=== PATIENT | male | born 1990 | race African-American/Black ===

== ENCOUNTER 2017-09-05 10:48 | Inpatient (IN) | payer SELFPAY ==
[2017-09-05] VITALS (8 sets, daily range): BP systolic 127–158; BP diastolic 44–94
[~2017-09-05] VITALS: Ht 172.7 cm; Wt 76.7 kg
--- NOTE | 2017-09-05 11:05 | NUR ---
PATIENT PRESENTS TO ED WITH umbilical region pain, nausea, loose stool x this am . PT STATES . DENIES N/V/D; SKIN IS PINK/WARM/DRY; AAOX4 WITH EVEN AND STEADY GAIT; LUNGS CLEAR BL; HR EVEN AND REGULAR; PT DENIES ANY FEVER, CP, SOB, OR COUGH AT THIS TIME; PATIENT STATES PAIN OF 7/10 AT THIS TIME; VSS; PATIENT POSITIONED FOR COMFORT; HOB ELEVATED; BEDRAILS UP X2; BED DOWN. ER MD MADE AWARE OF PT STATUS.
[2017-09-05] MEDS ORDERED: KETOROLAC 30 MG/ML VIAL IVP ONE (11:15)
--- NOTE | 2017-09-05 11:24 | NUR ---
blood collected at iv start--lab called for pick up and delivery driver
[2017-09-05 11:45] LABS: BASOPHILS # (AUTO) 0.1 K/uL (0.00-0.22); BASOPHILS % (AUTO) 1.3 % (0.0-2.0); EOSINOPHILS # (AUTO) 0.1 K/uL (0-0.4); HEMATOCRIT 45.2 % (36-52); HEMOGLOBIN 15.3 g/dL (12.0-18.0); LYMPHOCYTES # (AUTO) 0.6 K/uL (2.0-11.5); LYMPHOCYTES % (AUTO) 5.7 % (20.5-51.1); MEAN CORPUSCULAR HEMOGLOBIN 29 pg (27-31); MEAN CORPUSCULAR HGB CONC 34 g/dL (33-37); MEAN CORPUSCULAR VOLUME 85 fL (80-94); MONOCYTES # (AUTO) 0.5 K/uL (0.8-1.0); MONOCYTES % (AUTO) 4.7 % (1.7-9.3); NEUTROPHILS # (AUTO) 8.5 K/uL (1.8-7.7); NEUTROPHILS % (AUTO) 87.3 % (42.2-75.2); PLATELET COUNT (AUTO) 159 K/uL (140-450); RED BLOOD CELL COUNT(AUTO) 5.32 MIL/uL (4.20-6.10); RED CELL DISTRIBUTION WIDTH 12.6 % (11.6-13.7); WHITE BLOOD COUNT (AUTO) 9.8 K/uL (4.8-10.8)
[2017-09-05 12:06] LABS: CARBON DIOXIDE 25.5 mmol/L (21-32); POTASSIUM 3.5 mmol/L (3.5-5.1)
[2017-09-05 12:11] LABS: ALBUMIN 4.3 g/dL (3.4-5.0); TOTAL BILIRUBIN 0.4 mg/dL (0.0-1.0)
--- NOTE | 2017-09-05 12:14 | NUR ---
dispo is admission, awaits room availability for acute appy
[2017-09-05] MEDS ORDERED: PIPERACILLIN/TAZOBACTAM 3.375 GM VIAL IV ONE (12:18)
[2017-09-05] MEDS ORDERED: PIPERACILLIN/TAZOBACTAM 3.375 GM in DEXTROSE 5% 50 ML IV ONE (12:20)
[2017-09-05] MEDS: NACL 0.9% 1,000 ML IV SCH ×2 (12:24→22:24)
[2017-09-05] MEDS ORDERED: DOCUSATE SODIUM 100 MG GELCAP PO PRN (12:25)
[2017-09-05] MEDS ORDERED: ONDANSETRON 4 MG/2 ML VIAL IVP PRN ×2 (12:25→15:20)
[2017-09-05] MEDS ORDERED: ACETAMINOPHEN 325 MG TAB PO PRN (12:25)
[2017-09-05] MEDS ORDERED: HYDROcodone/APAP 7.5/325 MG 1 TAB PO PRN (12:25)
--- NOTE | 2017-09-05 12:50 | NUR ---
PATIENT WAS TRANSFERRED FROM ER IN [facility]. REPORT WAS GIVEN AT BEDSIDE. PATIENT IS AWAKE, ALERT, AMBULATE SELF TO BED, STEADY GAIT. VS WAS TAKEN. MRSA WAS SWABBED. IVF WAS HUNG. PATIENT WAS ORIENTED WITH ROOM, STAFF, AND CALL LIGHT. PATIENT COMPLAINED OF ABDOMINAL PAIN 2/10, STATED HE DID NOT NEED MEDICATION RIGHT NOW. PLAN OF CARE WAS DISCUSSED WITH PATIENT. BED AT LOW POSITION, UPPER SIDE RAILS UP
--- NOTE | 2017-09-05 12:54 | NUR ---
Pt transferred to Med/Surg via [facility] report given to Al BROUSSARD ---room 111-a
[2017-09-05 13:07] LABS: PROTHROMBIN TIME 10.5 secs (10.8-13.4)
[2017-09-05 13:24] LABS: FREE T4 (FREE THYROXINE) 1.16 ng/dL (0.76-1.46); MAGNESIUM 1.7 mg/dL (1.8-2.4); THYROID STIMULATING HORMONE 0.94 uIU/mL (0.34-3.74)
[2017-09-05] MEDS ORDERED: KETOROLAC 30 MG/ML VIAL IVP PRN (13:30)
--- NOTE | 2017-09-05 13:57 | NUR ---
PROCEDURE CONSENT WAS OBTAINED AT BEDSIDE, SIGNED BY PATIENT. PATIENT VERBALIZED UNDERSTANDING.
--- NOTE | 2017-09-05 14:30 | NUR ---
OR TRANSPORT WAS AT BEDSIDE, TRANSFERRING PATIENT TO OR. PATIENT IS STABLE AT THIS TIME
[2017-09-05] MEDS ORDERED: PHENYLEPHRINE 10 MG/ML VIAL ONE (14:32)
[2017-09-05] MEDS ORDERED: SUCCINYLCHOLINE CHLORIDE 200 MG/10 ML VIAL IVP ONE (14:32)
[2017-09-05] MEDS ORDERED: ROCURONIUM 50 MG/5 ML VIAL IV ONE (14:32)
[2017-09-05] MEDS ORDERED: DESFLURANE 240 ML BTL INH ONE (14:32)
[2017-09-05] MEDS ORDERED: LIDOCAINE 2% 100 MG/5 ML SYR IVP ONE (14:32)
[2017-09-05] MEDS ORDERED: PROPOFOL 200 MG/20 ML VIAL IV ONE (14:32)
[2017-09-05] MEDS ORDERED: DEXAMETHASONE 4 MG/ML VIAL ONE (14:32)
[2017-09-05] MEDS ORDERED: ePHEDrine 50 MG/ML VIAL ONE (14:32)
[2017-09-05] MEDS ORDERED: GLYCOPYRROLATE 0.2 MG/ML VIAL ONE (14:32)
[2017-09-05] MEDS ORDERED: ONDANSETRON 4 MG/2 ML VIAL ONE (14:32)
[2017-09-05] MEDS ORDERED: fentaNYL 0.05 MG/ML VIAL ONE (14:41)
[2017-09-05] MEDS ORDERED: MIDAZOLAM 2 MG/2 ML VIAL ONE (14:41)
[2017-09-05] MEDS ORDERED: BUPIVACAINE-MPF 0.25% 30 ML VIAL INJ ONE (14:51)
[2017-09-05] MEDS ORDERED: HYDROmorphone PFS 2 MG/ML SYR IVP PRN (15:20)
[2017-09-05] MEDS ORDERED: HYDROmorphone 1 MG/ML AMP IVP PRN (15:20)
[2017-09-05] MEDS ORDERED: HYDROmorphone PFS 2 MG/ML SYR ONE (16:30)
--- NOTE | 2017-09-05 16:52 | NUR ---
PATIENT WAS TRANSFERRED FROM OR. REPORT WAS GIVEN AT BEDSIDE. VS WAS TAKEN. PATIENT IS AWAKE, ALERT. RESPIRATION EVEN, UNLABOR ON ROOM AIR. DENIED PAIN AT THIS TIME.
--- NOTE | 2017-09-05 18:10 | NUR ---
PATIENT IS AWAKE, ALERT, EATING DINNER. PATIENT TOLERATED CLEAR LIQUID WELL, NO COMPLAINED OF PAIN, NAUSEA. RESPIRATION EVEN, UNLABOR. CALL LIGHT WITHIN REACH
--- NOTE | 2017-09-05 19:20 | NUR ---
PATIENT REPORT REPORT RECEIVED FROM MORNING NURSE AT BEDSIDE. PATIENT IS AWAKE, ALERT, AND ORIENTED. NO SIGNS AND SYMPTOMS OF DISTRESS NOTED. IV SITE NOTED ON RIGHT AC, IVF INFUSING WELL. BED IN LOWEST POSITION, SIDE RAILS UP AND CALL LIGHT WITHIN REACH. WILL CONTINUE TO MONITOR.
--- NOTE | 2017-09-05 20:00 | NUR ---
PATIENT REQUESTED HANDOUT ABOUT APPENDICITIS AND APPENTECTOMY. GAVE HIM TWO HANDOUTS AND LET HIM KNOW TO ASK IF HE HAS ANY QUESTIONS
[2017-09-05] MEDS: PIPER/TAZO 3.375GM/D5W PREMIX 50 ML IV SCH (20:11)
[2017-09-05] MEDS: HYDROcodone/APAP 5/325 MG 1 TAB TAB PO PRN (20:11)
[2017-09-05 22:39] LABS: APPEARANCE,URINE CLEAR (CLEAR); BILIRUBIN,URINE NEGATIVE (NEGATIVE); BLOOD, URINE NEGATIVE (NEGATIVE); COLOR,URINE YELLOW (YELLOW); LEUKOCYTE ESTERASE ,URINE NEGATIVE (NEGATIVE); NITRITE, URINE NEGATIVE (NEGATIVE); UGLUCOSE NEGATIVE (NEGATIVE)
[2017-09-05 22:46] LABS: BARBITURATE, URINE NEG. ng/ml (NEG <=200); BENZODIAZEPINE, URINE POS. ng/mL (NEG <=200); CANNABINOID, URINE POS. ng/mL (NEG <=50); COCAINE, URINE NEG. ng/mL (NEG <=300); OPIATE, URINE NEG. ng/mL (NEG <=2000); PHENCYCLIDINE SCREEN,URINE NEG. ng/mL (NEG <=25)
[2017-09-05 22:55] LABS: RBC,URINE 0-5 (RARE) /HPF (0-5); WBC,URINE 0-5 (RARE) /HPF (0-5)
[2017-09-06] VITALS: BP 119/62
--- NOTE | 2017-09-06 | NUR ---
CHECKED ON PATIENT. PATIENT IS ASLEEP. NO SIGNS AND SYMPTOMS OF DISTRESS NOTED. WILL CONTINUE TO MONITOR.
--- NOTE | 2017-09-06 02:00 | NUR ---
CHECKED ON PATIENT. PATIENT IS ASLEEP. NO SIGNS AND SYMPTOMS OF DISTRESS NOTED. WILL CONTINUE TO MONITOR.
[2017-09-06 04:00] VITALS: BP 121/72
[2017-09-06] MEDS: PIPER/TAZO 3.375GM/D5W PREMIX 50 ML IV SCH ×2 (04:32→12:30)
--- NOTE | 2017-09-06 04:47 | NUR ---
CHECKED ON PATIENT. PATIENT IS ASLEEP. NO SIGNS AND SYMPTOMS OF DISTRESS NOTED. WILL CONTINUE TO MONITOR.
[2017-09-06 06:14] LABS: BASOPHILS # (AUTO) 0.1 K/uL (0.00-0.22); BASOPHILS % (AUTO) 0.8 % (0.0-2.0); EOSINOPHILS % (AUTO) 0.2 % (0.0-4.0); HEMATOCRIT 39.5 % (36-52); HEMOGLOBIN 13.3 g/dL (12.0-18.0); LYMPHOCYTES # (AUTO) 1.1 K/uL (2.0-11.5); LYMPHOCYTES % (AUTO) 11.3 % (20.5-51.1); MEAN CORPUSCULAR HEMOGLOBIN 29 pg (27-31); MEAN CORPUSCULAR HGB CONC 34 g/dL (33-37); MEAN CORPUSCULAR VOLUME 85 fL (80-94); MONOCYTES # (AUTO) 0.8 K/uL (0.8-1.0); MONOCYTES % (AUTO) 8.3 % (1.7-9.3); NEUTROPHILS # (AUTO) 7.8 K/uL (1.8-7.7); NEUTROPHILS % (AUTO) 79.4 % (42.2-75.2); PLATELET COUNT (AUTO) 139 K/uL (140-450); RED BLOOD CELL COUNT(AUTO) 4.66 MIL/uL (4.20-6.10); RED CELL DISTRIBUTION WIDTH 12.8 % (11.6-13.7); WHITE BLOOD COUNT (AUTO) 9.8 K/uL (4.8-10.8)
[2017-09-06 06:28] LABS: ANION GAP 14.4 (8-16); CARBON DIOXIDE 25.5 mmol/L (21-32); POTASSIUM 3.9 mmol/L (3.5-5.1)
[2017-09-06 06:35] LABS: MAGNESIUM 1.9 mg/dL (1.8-2.4); PHOSPHORUS 4.1 mg/dL (2.5-4.9)
[2017-09-06 06:37] LABS: CHOL/HDL RATIO 2.2 (1-4.5)
--- NOTE | 2017-09-06 07:13 | NUR ---
PATIENT REPORT GIVEN TO MORNING NURSE AT BEDSIDE. PATIENT IS IN STABLE CONDITION
--- NOTE | 2017-09-06 07:20 | NUR ---
ENDORSEMENT RECEIVED FROM [employer] NURSE. PATIENT IS AWAKE, ALERT, RESPIRATIONE EVEN, UNLABOR ON ROOM AIR. SKIN DRY AND WARM. IV PATENT AND INTACT. COMPLAINED OF ABDOMINAL PAIN 2/. IV PATENT AND INTACT. PLAN OF CARE WAS DISCUSSED WITH THE PATIENT. BED AT LOW POSITION, CALL LIGHT WITHIN REACH.
[2017-09-06 08:00] VITALS: BP 132/69
[2017-09-06] MEDS: HYDROcodone/APAP 5/325 MG 1 TAB TAB PO PRN (08:08)
[2017-09-06] MEDS: NACL 0.9% 1,000 ML IV SCH (08:24)
[2017-09-06] MEDS ORDERED: LACTOBACILLUS RHAMNOSUS GG 1 EACH CAP PO SCH (09:00)
--- NOTE | 2017-09-06 09:00 | NUR ---
PATIENT IS AWAKE, ALERT. RESPIRATION EVEN, UNLABOR ON ROOM AIR. DENIED PAIN AT THIS TIME. ENCOURAGED PATIENT TO AMBULATE. MED WAS GIVEN PER ORDER. CALL LIGHT WITHIN REACH
[2017-09-06 12:00] VITALS: BP 136/71
--- NOTE | 2017-09-06 12:15 | NUR ---
PATIENT IS AWAKE, ALERT, EATING LUNCH. RESPIRATION EVEN, UNLABOR ON ROOM AIR. NO DISTRESS NOTED. DENIED OF PAIN, NAUSEA, VOMITING. CALL LIGHT WITHIN REACH
[2017-09-06] MEDS ORDERED: DOCU-299 PO (13:15)
[2017-09-06] MEDS ORDERED: ACET-9525 PO (13:15)
--- NOTE | 2017-09-06 14:20 | NUR ---
DISCHARGE INSTRUCTION AND PRESCRIPTION WAS GIVEN. PATIENT VERBALIZED UNDERSTANDING. IV WAS REMOVED, CATHETER INTACT, NO ACTIVE BLEEDING SEEN, PATIENT TOLERATED WELL. ID BAND WAS REMOVED. EXCUSE FROM WORK WAS GIVEN. ALL BELONGING WAS TAKEN WITH THE PATIENT. PATIENT AMBULATES SELF OUT WITH STAFF, AND FAMILY, STEADY GAIT. PATIENT IS STABLE AT THIS TIME Addendum: 09/06/17 at 1502 by Elana Dennison RN PICTURE OF INCISION WAS TAKEN.
== END 2017-09-06 14:20 | disposition home or self-care (01) | DRG 343 ==
LOC: MED 10:48 → MTU 12:33
PROVIDERS: ADMIT Family Medicine; ATTEND Family Medicine
PROC: 0DTJ4ZZ Resection of Appendix, Percutaneous Endoscopic Approach (ICD-10-PCS; principal; 2017-09-05 14:15)
DX: K35.80 Unspecified acute appendicitis (principal); E83.39 Other disorders of phosphorus metabolism; I10 Essential (primary) hypertension; E83.42 Hypomagnesemia; E83.51 Hypocalcemia; F12.10 Cannabis abuse, uncomplicated; Z90.49 Acquired absence of other specified parts of digestive tract; E66.3 Overweight; Z68.25 Body mass index [BMI] 25.0-25.9, adult
CPT/HCPCS: 36415; 71045; 80048; 80053; 80305; 81001; 82150; 82374; 83036; 83690; 83735; 83880; 84100; 84439; 84443; 84484; 85025; 85610; 85730; 86886; 86900; 86901; 87081; 96374; 99285; J0330; J1100; J1170; J1885; J2001; J2250; J2370; J2405; J2543; J2704; J3010; J3490; J7030; J7060; Q0092